=== PATIENT | female | born 1955 | race Caucasian/White ===

== ENCOUNTER 2018-08-28 16:46 | Emergency (ER) | payer OTHER ==
[~2018-08-28] VITALS: Ht 172.7 cm; Wt 97.5 kg
[~2018-08-28 16:46] MED LIST: ASPIR 8181 M1 PO; BACTRIM DS TAB1 EACH PO; DOXYCYCLINE 10100 M1 PO; KEFLEX500 MG PO; LAMISIL AT15 GM TP; PRILOSEC 20 MG20 MG PO; TRIAMCINOLONE A80 G2 TOP; WOMEN'S DAILY1 EAC1 PO
[2018-08-28] MEDS ORDERED: ADULT ASPIRIN R81 MG PO (17:19)
[2018-08-28] MEDS ORDERED: WOMEN'S DAILY1 EACH PO (17:19)
[2018-08-28] MEDS ORDERED: PRILOSEC OTC20 MG PO (17:19)
[2018-08-28 18:48] VITALS: BP 154/81
== END 2018-08-28 18:49 | disposition home or self-care (01) ==
LOC: M.ERS 16:46
DX: M25.522 Pain in left elbow (principal); R21 Rash and other nonspecific skin eruption; Z88.1 Allergy status to other antibiotic agents; Z91.040 Latex allergy status